=== PATIENT | female | born 1995 | race Caucasian/White ===

== ENCOUNTER 2022-06-12 14:11 | Outpatient (CLI) | payer OTHER | END 2022-06-12 15:03 | disposition home or self-care (01) | LOC: NST 14:11 | PROVIDERS: ATTEND Obstetrics & Gynecology Gynecology | DX: Z34.83 Encounter for supervision of other normal pregnancy, third trimester (principal) ==

== ENCOUNTER 2022-07-03 12:49 | Outpatient (CLI) | payer OTHER | END 2022-07-03 13:40 | disposition home or self-care (01) | LOC: NST 12:49 | PROVIDERS: ATTEND Obstetrics & Gynecology Maternal & Fetal Medicine | DX: Z34.83 Encounter for supervision of other normal pregnancy, third trimester (principal) ==